=== PATIENT | female | born 2000 ===

== ENCOUNTER 2021-06-21 14:26 | Emergency (ER) | payer OTHER, MEDICAID, SELFPAY ==
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
[2021-06-21 16:35] LABS: UR Morphine/Opiate cutoff 300 Negative (Negative); Ur Creatinine Normal (Normal); Ur Specific Gravity Normal (Normal); Urine Amphetamines Negative (Negative); Urine Barbiturates Negative (Negative); Urine Benzodiazepines Negative (Negative); Urine Cocaine Negative (Negative); Urine MDMA Negative (Negative); Urine Methadone Negative (Negative); Urine Methamphetamines Negative (Negative); Urine Oxycodone Negative (Negative); Urine Phencyclidine Negative (Negative); Urine Tetrahydrocannabinol Negative (Negative); Urine Tricyclic Antidepressant Negative (Negative); Urine pH Normal (Normal)
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
[2021-06-21 17:12] LABS: Bacteria Urine Moderate (10-30); Culture Indicated Urine Specimen Cultured; Hyaline Casts Urine 1-5/LPF; Mucus Urine 2+ (Negative); RBC Urine 0-1/HPF (0-5/HPF); Squamous Epithelial Cell Urine 1-5 /HPF (0-5/HPF); Transitional Epi Cells Urine 1-5/HPF (0-5/HPF); WBC Urine 10-30/HPF (0-5/HPF)
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
[2021-06-21 17:30] LABS: Add Manual Diff / Slide Review NO; Basophils Absolute Auto 100 /uL (0-100); Basophils Percent Auto 0.9 % (0-2); Eosinophils Absolute Auto 100 /uL (0-450); Hematocrit 36.9 % (36-46); Hemoglobin 12.4 g/dL (12.0-16.0); Lymphocytes Absolute Auto 1200 /uL (1100-4500); Lymphocytes Percent Auto 21.7 % (25-40); Mean Corpuscular HGB Conc 33.6 % (30-36); Mean Corpuscular Hemoglobin 28.5 PG (26-34); Mean Corpuscular Volume 84.9 fL (80-100); Monocytes Absolute Auto 500 /uL (0-900); Monocytes Percent Auto 8.7 % (3-14); Neutrophils Absolute Auto 3900 /uL (1500-7000); Neutrophils Percent Auto 67.7 % (50-75); Platelet Count 242 X10^3/uL (150-400); Red Blood Cell Count 4.35 X10^6/uL (4.0-5.2); Red Cell Distribution Width 12.9 % (11.6-14.8); White Blood Cell Count 5.8 X10^3/uL (4.5-11.0)
[2021-06-21 18:00] LABS: Alanine Aminotransferase 12 IU/L (<35); Albumin 4.8 g/dL (3.5-5.0); Albumin Globulin Ratio 1.5 (1.0-2.8); Alkaline Phosphatase 46 U/L (38-126); Aspartate Aminotransferase 29 IU/L (14-36); BUN Creatinine Ratio 19.7 (6-22); Bilirubin Total 0.7 mg/dL (0.2-1.3); Blood Urea Nitrogen 15 mg/dL (7-17); Calcium 9.5 mg/dL (8.4-10.2); Carbon Dioxide 26 mmol/L (22-32); Chloride 104 mmol/L (98-107); Estimated Glomerular Filt Rate > 60.0 mL/min (>60); Ethanol (ETOH) < 10 mg/dL; Globulin 3.3 g/dL (1.7-4.1); Glucose 83 mg/dL (70-100); HEMOLYSIS < 15 (0-50); Potassium 3.7 mmol/L (3.4-5.1); Sodium 140 mmol/L (137-145); Total Protein 8.1 g/dL (6.3-8.2)
--- NOTE | 2021-06-21 18:05 | PC.NURSE ---
pt is starting to open up more. answering a few questions.
--- NOTE | 2021-06-21 18:13 | PC.NURSE ---
pt has been having hallucinations.
[2021-06-21 18:27] VITALS: BP 120/84; PULSE 78; O2SAT 100
--- NOTE | 2021-06-21 19:26 | PC.NURSE ---
This SPECIAL CLIENT BUS DRIVER assisted patient with getting undressed for exam with Doctor. This SPECIAL CLIENT BUS DRIVER stayed with Dr while she asked pt a series of questions and pt willingly answered. Dr examined pt's back, stomach where pt stated pain, and legs. Pt did well with exam. After the exam, pt stayed in gown for a while. This SPECIAL CLIENT BUS DRIVER went in later and assisted pt with getting dressed again. Pt very cooperative through the process.
[2021-06-21 19:57] LABS: Urine N gonorrhoeae NOT DETECTED
[2021-06-21 19:58] LABS: Urine Chlamydia NOT DETECTED
== END 2021-06-21 20:09 | disposition home or self-care (01) ==
PROVIDERS: Emergency Provider Emergency Medicine
DX: F43.10 Post-traumatic stress disorder, unspecified (principal)
CPT/HCPCS: 80053; 80305; 80320; 81003; 81015; 81025; 84443; 85025; 87077; 87086; 87491; 87591; 99282; 99283

== ENCOUNTER 2021-06-23 23:04 | Emergency (ER) | payer OTHER, MEDICAID, SELFPAY ==
--- NOTE | 2021-06-24 00:44 | PC.NURSE ---
Pt becoming Vocal while speaking with dad in Rm Pt States it stinks when there is a body in your bed and when there are Zombies around it irritates the nipples on your skin. Con't //Pt states I think my dogs are Zombies too they bark and are in blood
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
--- NOTE | 2021-06-24 05:33 | PC.NURSE ---
Patient speaking in rambling incoherent sentences which do not appropriately answer the questions that the RN asks; she refuses to have vital signs taken and talks about zombies and random other unconnected thoughts. Her father and brother both express concern and that her personality appears to have changed rapidly in the past few days.
[2021-06-24 06:16] VITALS: BP 105/74; PULSE 93; RESP 15; O2SAT 99
== END 2021-06-24 06:16 | disposition home or self-care (01) ==
PROVIDERS: Emergency Provider Emergency Medicine
DX: F43.10 Post-traumatic stress disorder, unspecified (principal); R41.82 Altered mental status, unspecified
CPT/HCPCS: 70450; 99283; 99284